=== PATIENT | female | born 1985 | race Caucasian/White ===

== ENCOUNTER 2018-05-31 05:25 | Day surgery (SDC) | payer OTHER | END 2018-05-31 12:45 | disposition home or self-care (01) | LOC: CIR.AMB 05:25 | DX: N93.8 Other specified abnormal uterine and vaginal bleeding (principal); Z97.5 Presence of (intrauterine) contraceptive device ==

== ENCOUNTER 2019-11-17 09:15 | Outpatient (CLI) | payer OTHER | END 2019-11-17 09:26 | disposition home or self-care (01) | LOC: RAD 09:15 | DX: J20.0 Acute bronchitis due to Mycoplasma pneumoniae (principal) ==